=== PATIENT | female | born 1970 | race Caucasian/White ===

== ENCOUNTER 2016-09-21 15:11 | Emergency (ER) | payer BC ==
[2016-09-21] MEDS ORDERED: EPINEPHrine/PF 1 MG/1 ML 1:1000 SUBCUT ONE (15:30)
--- NOTE | 2016-09-21 15:31 | ED Physician Documentation ---
Allergy Symptoms - HISTORIAN Historian: patient - HPI Stated Complaint: Bee Sting Chief Complaint: Allergic Reaction Additional Information: Cora was stung by something about 10 minutes ago. She was outside the [facility] office when she was stung on the right ring finger. She didn't actually see the insect. 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 She did not have her epi pen with her, so she presented here as quickly as possible. On the way here she developed a feeling of her heart racing and now she feels some tightness in her throat. She denies shortness of breath or difficulty swallowing. She has a little nausea. Onset: minutes Duration: continues in ED Associated Symptoms: denies: diffuse redness, diffuse hives Swelling: none Shortness of Breath: none Trouble Swallowing/ Speaking: none Identified Cause: possibly When Did Symptoms Start: 09/21/16 Context: Medication Exposure: none Context: Other Exposure: bee sting (she thinks a bee sting) - ROS EYES/ENT: none, other (mild tightness in throat) CVS/RESP: none GI/: nausea. denies: abdominal pain, vomiting CONST: denies: recent illness, fever MS/SKIN/LYMPH: denies: calf pain, neck pain NEURO/PSYCH: denies: headache, numbness - PAST HX Prior Allergic Reaction: anaphylaxis Medical History: denies: asthma, cardiac disease Allergies/Adverse Reactions: Allergies Allergy/AdvReac Type Severity Reaction Status Date / Time Penicillins Allergy Verified 09/21/16 15:19 Home Medications: Ambulatory Orders Medication Instructions Recorded Epinephrine [Epipen 2-Scott] 0.3 mg IJ 1T PRN #1 ml 09/21/16 - SOCIAL HX Smoking History: non-smoker Drug Use: none - FAMILY HX Family History: No (non-contributory) - VITAL SIGNS Vital Signs: Vital Signs Temp Pulse Resp BP Pulse Ox 98.7 F 98 H 18 145/85 99 09/21/16 15:15 09/21/16 15:15 09/21/16 15:15 09/21/16 15:15 09/21/16 15:15 - REVIEWED ASSESSMENTS Nursing Assessment Reviewed: Yes Vitals Reviewed: Yes Allergy Symptons Exam - EXAM General Appearance: anxious. No: hyperventilating HEENT: ENT nml inspection, pharynx nml, voice nml. No: angioedema Skin: no rash, erythematous (diatl right 4th digit is erythematous and slightly edematous) Neck: nml inspection. No: lymphadenopathy Respiratory: no resp. distress, breath sounds nml CVS: reg rate & rhythm, heart sounds normal Abdomen: no distention, other (no rigidity) Neuro: oriented X3, CN's nml as tested Discharge Clincal Impression: Allergic reaction Prescriptions: Epinephrine [Epipen 2-Scott] 0.3 mg IJ 1T PRN #1 ml PRN Reason: Anaphylaxis Referrals: Ashli Burt MD [Primary Care Provider] - 2 Days Additional Instructions: She rested for more than an hour in the ER and was feeling much better. Home Medications: Ambulatory Orders Epinephrine [Epipen 2-Scott] 0.3 mg IJ 1T PRN #1 ml 09/21/16 Condition: Stable Disposition: 01 HOME, SELF-CARE Decision to Admit: NO Decision Time: 16:28
[2016-09-21 16:33] VITALS: BP 122/64
== END 2016-09-21 16:30 | disposition home or self-care (01) ==
LOC: ED 15:11
DX: T78.49XA Other allergy, initial encounter (principal); X58.XXXA Exposure to other specified factors, initial encounter; Y93.9 Activity, unspecified; Y99.9 Unspecified external cause status
CPT/HCPCS: 96372; 99283; J0171